=== PATIENT | female | born 1990 | race Caucasian/White ===

== ENCOUNTER 2016-05-01 16:20 | Emergency (ER) | payer OTHER ==
[~2016-05-01] VITALS: Ht 167.6 cm; Wt 90.7 kg
[2016-05-01] MEDS ORDERED: LABE10TAB (16:29)
--- NOTE | 2016-05-01 20:10 | REPUSA ---
HISTORY: Trauma. COMPARISON: No relevant comparison is available at the time of interpretation. CT ORBITS without contrast: Nasal Bone: Intact. Sinuses and mastoids: Clear. Orbits: No retrobulbar trauma. Maxilla: Intact. IMPRESSION: No orbital fracture.
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
[2016-05-01] MEDS ORDERED: IBUP200T45 PO (20:29)
[2016-05-01] MEDS ORDERED: TYLE325C PO (20:29)
[2016-05-01] MEDS: IBUPROFEN 800 MG TAB PO ONE (20:29)
[2016-05-01] MEDS: ACETAMINOPHEN 325 MG TAB PO ONE (20:29)
[2016-05-01 20:41] VITALS: BP 160/118
== END 2016-05-01 20:45 | disposition home or self-care (01) ==
LOC: M ED 17:46
DX: S00.83XA Contusion of other part of head, initial encounter (principal); W21.05XA Struck by basketball, initial encounter; Y92.89 Other specified places as the place of occurrence of the external cause; Y93.67 Activity, basketball; Y99.9 Unspecified external cause status

== ENCOUNTER 2016-07-16 12:51 | Emergency (ER) | payer OTHER ==
[~2016-07-16] VITALS: Ht 167.6 cm; Wt 86.2 kg
[~2016-07-16 12:51] MED LIST: IBUP200T45 PO; LABE10TAB; TYLE325C PO
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
[2016-07-16 14:38] LABS: BASO % 0.5 % (0.0-1.0); EOS # 0.5 K/mm3 (0.0-0.50); EOS % 5.9 % (0.0-3.0); LARGE UNSTAINED CELL # 0.1 K/mm3 (0.0-0.4); LARGE UNSTAINED CELL % 1.4 % (0.0-4.0); LYMPH % 24.8 % (24.0-44.0); MEAN CORPUSCULAR HEMOGLOBIN 32.3 pg (27.0-33.0); MEAN CORPUSCULAR HGB CONC 34.1 g/dl (32.0-36.5); MEAN CORPUSCULAR VOLUME 94.7 fl (80.0-96.0); MONO # 0.4 K/mm3 (0.0-0.8); MONO % 4.6 % (0.0-5.0); NEUTROPHILS % 62.8 % (36.0-66.0); PLATELET COUNT, AUTOMATED 201 k/mm3 (150-450); RED CELL DISTRIBUTION WIDTH 12.4 % (11.5-14.5)
[2016-07-16 14:43] LABS: CONTROL LINE HCG INT CTR LINE PRESENT
[2016-07-16 14:50] LABS: ALBUMIN 4.2 GM/DL (3.2-5.2); ALBUMIN/GLOBULIN RATIO 1.45 (1.00-1.93); ALKALINE PHOSPHATASE 74 U/L (45-117); ALT/SGPT 24 U/L (12-78); ANION GAP 7 MEQ/L (8-16); AST/SGOT 9 U/L (15-37); BILIRUBIN,TOTAL 1.1 MG/DL (0.2-1.0); BLOOD UREA NITROGEN 11 MG/DL (7-18); CALCIUM LEVEL 9.1 MG/DL (8.5-10.1); CARBON DIOXIDE LEVEL 29 MEQ/L (21-32); CHLORIDE LEVEL 105 MEQ/L (98-107); CREATININE FOR GFR 1.06 MG/DL (0.55-1.02); GLOMERULAR FILTRATION RATE > 60.0 (>60); GLUCOSE, FASTING 87 MG/DL (70-105); POTASSIUM SERUM 3.8 MEQ/L (3.5-5.1); SODIUM LEVEL 141 MEQ/L (136-145); TOTAL PROTEIN 7.1 GM/DL (6.4-8.2)
--- NOTE | 2016-07-16 14:58 | REP ---
RIGHT HAND, FOUR VIEWS: HISTORY: Injury. There is no acute fracture or dislocation. The joint spaces are normal in appearance. IMPRESSION: There is no acute fracture or dislocation. Signed by Lucas Larose MD 07/16/2016 03:00 P
[2016-07-16 15:05] LABS: CONTROL LINE INT CTR LINE PRESENT
[2016-07-16] MEDS ORDERED: ADACEL/BOOSTRIX VACCINE (DIPHTH/PERTUSS/ACELL/TETANUS)0.5ML SYR (90715) IM ONE (15:30)
[2016-07-16] MEDS ORDERED: AUGM875T27 PO (15:48)
[2016-07-16 16:14] VITALS: BP 131/95
[2016-07-17 09:39] LABS: HEPATITIS B SURFACE ANTIBODY NEGATIVE (POSITIVE)
== END 2016-07-16 16:27 | disposition home or self-care (01) ==
LOC: M ED 14:02
DX: S61.451A Open bite of right hand, initial encounter (principal); Y04.1XXA Assault by human bite, initial encounter; Y92.239 Unspecified place in hospital as the place of occurrence of the external cause; Y93.89 Activity, other specified; Y99.0 Civilian activity done for income or pay; I10 Essential (primary) hypertension; F41.9 Anxiety disorder, unspecified; Z79.899 Other long term (current) drug therapy

== ENCOUNTER → 2017-01-22 | Outpatient (REF) | payer OTHER ==
[~2017-01-22] MED LIST changes: +AUGM875T28 PO
== END ==
LOC: M LAB REF 09:18
PROVIDERS: ATTEND Physician Assistant
DX: J04.2 Acute laryngotracheitis (principal)

== ENCOUNTER → 2018-09-05 | Outpatient (CLI) | payer OTHER ==
[2018-09-05 17:44] LABS: BASO % 0.4 % (0.0-1.0); EOS # 0.1 10^3/uL (0.0-0.50); EOS % 0.8 % (0.0-3.0); HEMATOCRIT 41.2 % (36.0-47.0); HEMOGLOBIN 13.8 g/dl (12.0-15.5); LYMPH # 2.4 10^3/uL (1.5-4.5); LYMPH % 31.5 % (24.0-44.0); MEAN CORPUSCULAR HGB CONC 33.5 g/dl (32.0-36.5); MEAN CORPUSCULAR VOLUME 95.6 fl (80.0-96.0); MONO # 0.5 10^3/uL (0.0-0.8); MONO % 6.7 % (0.0-5.0); NEUTROPHILS # 4.7 10^3/uL (1.8-7.7); NEUTROPHILS % 60.3 % (36.0-66.0); PLATELET COUNT, AUTOMATED 170 10^3/uL (150-450); RED BLOOD COUNT 4.31 10^6/uL (4.00-5.40); WHITE BLOOD COUNT 7.8 10^3/uL (4.0-10.0)
[2018-09-05 18:09] LABS: ALBUMIN 4.4 GM/DL (3.2-5.2); ALT/SGPT 20 U/L (12-78); BILIRUBIN,TOTAL 1.4 MG/DL (0.2-1.0); BLOOD UREA NITROGEN 14 MG/DL (7-18); CALCIUM LEVEL 9.1 MG/DL (8.5-10.1); CARBON DIOXIDE LEVEL 29 MEQ/L (21-32); CHLORIDE LEVEL 105 MEQ/L (98-107); CREATININE FOR GFR 1.01 MG/DL (0.55-1.30); FREE T4 0.93 NG/DL (0.76-1.46); GLOMERULAR FILTRATION RATE > 60.0 (>60); GLUCOSE, FASTING 76 MG/DL (70-100); POTASSIUM SERUM 4.3 MEQ/L (3.5-5.1); SODIUM LEVEL 139 MEQ/L (136-145); TOTAL PROTEIN 7.1 GM/DL (6.4-8.2)
[2018-09-05 18:10] LABS: TOTAL 25(OH) VITAMIN D 32.6 NG/ML (30.0-100.0)
[2018-09-08 00:06] LABS: Lyme Disease IgG/IgM Antibodie <0.91 ISR (0.00-0.90); Lyme Disease IgM Ab Quantitati <0.80 index (0.00-0.79)
== END ==
LOC: M SMT 15:36
PROVIDERS: ATTEND Physician Assistant
DX: R53.83 Other fatigue (principal)

== ENCOUNTER → 2019-09-01 | Outpatient (CLI) | payer OTHER | LOC: M LABSMTC 13:24 | PROVIDERS: ATTEND Ophthalmology | DX: Z03.818 Encounter for observation for suspected exposure to other biological agents ruled out (principal); Z11.59 Encounter for screening for other viral diseases ==

== ENCOUNTER → 2019-12-07 | Outpatient (CLI) | payer OTHER | LOC: M LABSMTC 14:43 | PROVIDERS: ATTEND Ophthalmology | DX: Z11.59 Encounter for screening for other viral diseases (principal) ==

== ENCOUNTER → 2020-03-14 | Outpatient (CLI) | payer OTHER ==
[~2020-03-14] MED LIST changes: +LABE100T4; -LABE10TAB
[2020-03-14 18:03] LABS: BASO # 0.1 10^3/uL (0.0-0.2); BASO % 0.9 % (0.0-1.0); EOS # 0.1 10^3/uL (0.0-0.5); EOS % 1.8 % (0.0-3.0); HEMATOCRIT 40.6 % (36.0-47.0); HEMOGLOBIN 13.5 g/dl (12.0-15.5); LYMPH # 2.3 10^3/uL (1.5-5.0); LYMPH % 39.9 % (24.0-44.0); MEAN CORPUSCULAR HEMOGLOBIN 32.6 pg (27.0-33.0); MEAN CORPUSCULAR HGB CONC 33.3 g/dl (32.0-36.5); MEAN CORPUSCULAR VOLUME 98.1 fl (80.0-96.0); MONO # 0.3 10^3/uL (0.0-0.8); MONO % 5.5 % (0.0-5.0); NEUTROPHILS # 2.9 10^3/uL (1.5-8.5); NEUTROPHILS % 51.7 % (36.0-66.0); PLATELET COUNT, AUTOMATED 201 10^3/uL (150-450); RED BLOOD COUNT 4.14 10^6/uL (4.00-5.40); WHITE BLOOD COUNT 5.7 10^3/uL (4.0-10.0)
[2020-03-14 18:40] LABS: ALBUMIN 4.3 GM/DL (3.2-5.2); ALT/SGPT 35 U/L (12-78); BLOOD UREA NITROGEN 19 MG/DL (7-18); CALCIUM LEVEL 9.6 MG/DL (8.5-10.1); CARBON DIOXIDE LEVEL 29 MEQ/L (21-32); CHLORIDE LEVEL 104 MEQ/L (98-107); CREATININE FOR GFR 0.99 MG/DL (0.55-1.30); FREE T4 0.81 NG/DL (0.76-1.46); GLOMERULAR FILTRATION RATE > 60.0 (>60); GLUCOSE, FASTING 86 MG/DL (70-100); POTASSIUM SERUM 4.9 MEQ/L (3.5-5.1); SODIUM LEVEL 140 MEQ/L (136-145)
[2020-03-14 19:04] LABS: TOTAL 25(OH) VITAMIN D 23.1 NG/ML (30.0-100.0)
== END ==
LOC: M PLALAB 15:51
PROVIDERS: ATTEND Physician Assistant
DX: R53.1 Weakness (principal); R53.83 Other fatigue

== ENCOUNTER 2020-06-08 18:01 | Emergency (ER) | payer OTHER ==
[~2020-06-08] VITALS: Ht 167.6 cm; Wt 73.8 kg
[2020-06-08] MEDS ORDERED: SAXE1INJ INJ (18:10)
[2020-06-08] MEDS ORDERED: CLON0.5T2 PO (18:10)
[2020-06-08] MEDS ORDERED: NORCO, ANEXSIA 5/325MG TABLET (HYDROcodone/ACETAMINOPHEN) PO ONE (18:50)
--- NOTE | 2020-06-08 19:28 | REP ---
INDICATION: cut great toe on mower blade COMPARISON: None. TECHNIQUE: AP and lateral views of the left foot FINDINGS: The osseous structures and joint spaces are intact and normal. There is no evidence for acute fracture or dislocation. Surrounding soft tissues are grossly unremarkable and without obvious laceration, subcutaneous emphysema, or foreign body. IMPRESSION: No acute fracture or dislocation. <Electronically signed by Tim Dixon > 06/08/201923
--- NOTE | 2020-06-08 19:29 | REP ---
INDICATION: cut great toe on mower blade COMPARISON: None. TECHNIQUE: AP, lateral, bilateral oblique views left 1st toe. FINDINGS: No acute fracture or dislocation. No subcutaneous emphysema or foreign body. IMPRESSION: No foreign body. No acute fracture or dislocation. <Electronically signed by Tim Dixon > 06/08/201925
[2020-06-08] MEDS ORDERED: BOOSTRIX/ADACEL VACCINE (DIPHTH/PERTUSS/ACELL/TETANUS) 0.5ML SYR IM ONE (20:20)
[2020-06-08] MEDS ORDERED: CEPHALEXIN 500 MG CAP PO ONE (20:20)
[2020-06-08] MEDS ORDERED: CEPH500C PO (20:20)
[2020-06-08 20:21] VITALS: BP 140/91
== END 2020-06-08 20:42 | disposition home or self-care (01) ==
LOC: M ED 18:01
DX: S91.202A Unspecified open wound of left great toe with damage to nail, initial encounter (principal); W26.8XXA Contact with other sharp object(s), not elsewhere classified, initial encounter; Y92.018 Other place in single-family (private) house as the place of occurrence of the external cause

== ENCOUNTER → 2021-01-21 | Outpatient (REF) | payer OTHER ==
[~2021-01-21] MED LIST changes: +CEPH500C PO; +CLON0.5T2 PO; +SAXE1INJ INJ
== END ==
LOC: M LAB REF 17:04
PROVIDERS: ATTEND Family Medicine
DX: J06.9 Acute upper respiratory infection, unspecified (principal)

== ENCOUNTER 2021-04-24 10:15 | Emergency (ER) | payer OTHER ==
[~2021-04-24] VITALS: Ht 167.6 cm; Wt 70.5 kg
[2021-04-24] MEDS ORDERED: ZOLP10TA2 (10:27)
[2021-04-24] MEDS ORDERED: DULO1CAP5 (10:27)
[2021-04-24] MEDS ORDERED: SEMA2.4P (10:27)
[2021-04-24] MEDS ORDERED: ONDA4TAB6 PO (12:04)
[2021-04-24 12:17] VITALS: BP 141/87
== END 2021-04-24 12:18 | disposition home or self-care (01) ==
LOC: M ED 10:15
DX: S06.0X0A Concussion without loss of consciousness, initial encounter (principal); Y29.XXXA Contact with blunt object, undetermined intent, initial encounter; Y92.218 Other school as the place of occurrence of the external cause; Y99.0 Civilian activity done for income or pay; I10 Essential (primary) hypertension; F41.9 Anxiety disorder, unspecified; Z79.899 Other long term (current) drug therapy

== ENCOUNTER → 2021-11-13 | Outpatient (CLI) | payer OTHER ==
[~2021-11-13] MED LIST changes: +DULO1CAP5; -LABE100T4; +LABE100T6; +ONDA4TAB6 PO; +SEMA2.4P; +ZOLP10TA2
[2021-11-13 14:09] LABS: ALBUMIN 4.1 GM/DL (3.2-5.2); CALCIUM LEVEL 9.1 MG/DL (8.5-10.1); CREATININE FOR GFR 1.12 MG/DL (0.55-1.30); GLOMERULAR FILTRATION RATE 59.6 (>60); POTASSIUM SERUM 4.5 MEQ/L (3.5-5.1)
[2021-11-13 14:29] LABS: HEMOGLOBIN A1c 4.7 %
== END ==
LOC: M LAB 09:24
PROVIDERS: ATTEND Family Medicine
DX: E16.0 Drug-induced hypoglycemia without coma (principal)

== ENCOUNTER → 2022-03-09 | Outpatient (CLI) | payer OTHER ==
[2022-03-09 08:20] LABS: BASO % 0.8 % (0.0-1.0); EOS # 0.1 10^3/uL (0.0-0.5); EOS % 1.3 % (0.0-3.0); HEMATOCRIT 43.4 % (36.0-47.0); HEMOGLOBIN 13.9 g/dl (12.0-15.5); LYMPH # 1.6 10^3/uL (1.5-5.0); LYMPH % 29.1 % (24.0-44.0); MEAN CORPUSCULAR HEMOGLOBIN 31.5 pg (27.0-33.0); MEAN CORPUSCULAR VOLUME 98.4 fl (80.0-96.0); MONO # 0.4 10^3/uL (0.0-0.8); MONO % 6.8 % (2.0-8.0); NEUTROPHILS # 3.3 10^3/uL (1.5-8.5); NEUTROPHILS % 61.8 % (36.0-66.0); PLATELET COUNT, AUTOMATED 194 10^3/uL (150-450); RED BLOOD COUNT 4.41 10^6/uL (4.00-5.40); WHITE BLOOD COUNT 5.3 10^3/uL (4.0-10.0)
[2022-03-09 08:39] LABS: ALKALINE PHOSPHATASE 67 U/L (46-116); ALT/SGPT 22 U/L (7.0-40); AST/SGOT 17 U/L (<34); BLOOD UREA NITROGEN 18 MG/DL (9-23); CALCIUM LEVEL 9.5 MG/DL (8.5-10.1); CARBON DIOXIDE LEVEL 28 MMOL/L (20-31); CHLORIDE LEVEL 105 MMOL/L (98-107); CHOLESTEROL LEVEL 214 MG/DL (<200); CHOLESTEROL RISK RATIO 3.53 (<5); GLOMERULAR FILTRATION RATE > 60.0 (>60); GLUCOSE, FASTING 89 MG/DL (60-100); HDL CHOLESTEROL 60.6 MG/DL (>40); LDL CHOLESTEROL 137.8 MG/DL (<100); NON-HDL-C 153 MG/DL; POTASSIUM SERUM 4.5 MMOL/L (3.5-5.1); SODIUM LEVEL 140 MMOL/L (136-145); TOTAL PROTEIN 6.6 G/DL (5.7-8.2); TRIGLYCERIDES LEVEL 78 MG/DL (<150)
[2022-03-09 08:40] LABS: FREE T4 1.03 NG/DL (0.89-1.76); THYROID STIMULATING HORMONE 1.812 uIU/ML (0.55-4.78)
== END ==
LOC: M RAD 06:43
PROVIDERS: ATTEND Family Medicine
DX: I10 Essential (primary) hypertension (principal)

== ENCOUNTER → 2022-04-15 | Outpatient (REF) | payer OTHER | LOC: M LAB REF 09:38 | PROVIDERS: ATTEND Family Medicine | DX: E78.00 Pure hypercholesterolemia, unspecified (principal) ==

== ENCOUNTER → 2022-11-26 | Outpatient (CLI) | payer OTHER | LOC: M SLEEP HO 10:02 | PROVIDERS: ATTEND Internal Medicine Cardiovascular Disease | DX: G47.33 Obstructive sleep apnea (adult) (pediatric) (principal); R06.83 Snoring ==

== ENCOUNTER 2023-06-16 09:30 | Day surgery (SDC) | payer OTHER ==
[~2023-06-16] VITALS: Ht 167.6 cm; Wt 67.6 kg
[~2023-06-16 09:30] MED LIST changes: +BUSP1TAB PO; +DULO1CAP6 PO; +LABE100T6 PO; +NS 1,000 ML IV ONE; -SEMA2.4P; +SEMA2.4P SC
[2023-06-16] MEDS ORDERED: propofoL 200 MG/20 ML VIAL As Ordered ONE (12:20)
[2023-06-16] MEDS ORDERED: LIDOCAINE 2% 100MG/5ML SDV (FOR ANES.) As Ordered ONE (12:20)
[2023-06-16 12:23] VITALS: TEMP 97.1
[2023-06-16 12:39] VITALS: BP 142/77; O2SAT 100
== END 2023-06-16 12:40 | disposition home or self-care (01) ==
LOC: M OPP 09:30
PROVIDERS: ATTEND Surgery
DX: Z12.11 Encounter for screening for malignant neoplasm of colon (principal); K63.5 Polyp of colon; Z80.0 Family history of malignant neoplasm of digestive organs; Z79.899 Other long term (current) drug therapy

== ENCOUNTER 2024-11-12 09:30 | Emergency (ER) | payer OTHER ==
[~2024-11-12] VITALS: Ht 167.6 cm; Wt 73.1 kg
[~2024-11-12 09:30] MED LIST changes: -NS 1,000 ML IV ONE; +ONDA-282 PO; -ONDA4TAB6 PO; +ZOLP10TA11; -ZOLP10TA2
[2024-11-12] MEDS: MECLIZINE 25 MG TABLET PO ONE (11:27)
[2024-11-12] MEDS: NS (Normal Saline) 0.9% 1,000 ML IV ONE (11:27)
[2024-11-12] MEDS: ONDANSETRON 4MG 2ML VIAL IV ONE (11:27)
[2024-11-12 11:42] LABS: BASO # 0.0 10^3/uL (0.0-0.2); BASO % 0.2 % (0.0-1.0); EOS # 0.0 10^3/uL (0.0-0.5); EOS % 0.1 % (0.0-3.0); LYMPH # 1.0 10^3/uL (1.5-5.0); LYMPH % 7.7 % (24.0-44.0); MONO # 0.3 10^3/uL (0.0-0.8); MONO % 2.6 % (2.0-8.0); NEUTROPHILS # 11.6 10^3/uL (1.5-8.5); NEUTROPHILS % 89.2 % (36.0-66.0); PLATELET COUNT, AUTOMATED 197 10^3/uL (150-450)
[2024-11-12 12:06] LABS: ALT/SGPT 16 U/L (7.0-40); AST/SGOT 18 U/L (<34); CALCIUM LEVEL 8.7 MG/DL (8.5-10.1); CARBON DIOXIDE LEVEL 23 MMOL/L (20-31); CHLORIDE LEVEL 102 MMOL/L (98-107); CREATININE FOR GFR 0.71 MG/DL (0.55-1.30); GLOMERULAR FILTRATION RATE > 90.0 (>60); POTASSIUM SERUM 3.8 MMOL/L (3.5-5.1); SODIUM LEVEL 136 MMOL/L (136-145)
[2024-11-12 12:53] LABS: KETONE, URINE AUTO RFX 1+ mg/dL (NEGATIVE); LEUKOCYTE ESTERASE UR AUTO RFX NEGATIVE (NEGATIVE); NITRITE, URINE AUTO RFX NEGATIVE (NEGATIVE); RBC, URINE AUTO RFX 0 /HPF (0-3); SQUAM EPITHELIAL CELL UR AURFX 1 /HPF (0-6); WBC, URINE AUTO RFX 0 /HPF (0-3)
[2024-11-12 13:13] VITALS: BP 128/83
[2024-11-12] MEDS: LABETALOL 100 MG TAB PO ONE (13:13)
[2024-11-12] MEDS ORDERED: MECL-86 PO (13:31)
[2024-11-12] MEDS ORDERED: ONDA-282 PO (13:31)
[2024-11-12 13:38] VITALS: BP 123/85; TEMP 98.2; O2SAT 99
[2024-11-13] MEDS ORDERED: TRAN1DIS4 TOP (15:40)
[2024-11-13] MEDS ORDERED: REGL10TA6 PO (15:40)
[2024-11-13] MEDS ORDERED: CETI10CH PO (15:41)
== END 2024-11-12 13:44 | disposition home or self-care (01) ==
LOC: M ED 09:30
DX: O26.892 Other specified pregnancy related conditions, second trimester (principal); R42 Dizziness and giddiness; Z3A.17 17 weeks gestation of pregnancy; Z79.899 Other long term (current) drug therapy
CPT/HCPCS: 80048; 80076; 81001; 85025; 93005; 96361; 96374; 99284; J2405

== ENCOUNTER 2024-11-13 07:54 | Emergency (ER) | payer OTHER ==
[~2024-11-13] VITALS: Ht 167.6 cm; Wt 73.0 kg
[~2024-11-13 07:54] MED LIST changes: +MECL-86 PO
[2024-11-13] MEDS: NS (Normal Saline) 0.9% 1,000 ML IV ONE (12:44)
[2024-11-13 12:47] LABS: BASO # 0.0 10^3/uL (0.0-0.2); BASO % 0.2 % (0.0-1.0); EOS # 0.0 10^3/uL (0.0-0.5); EOS % 0.1 % (0.0-3.0); LYMPH # 0.3 10^3/uL (1.5-5.0); LYMPH % 3.2 % (24.0-44.0); MONO # 0.6 10^3/uL (0.0-0.8); MONO % 6.4 % (2.0-8.0); NEUTROPHILS # 8.9 10^3/uL (1.5-8.5); NEUTROPHILS % 89.6 % (36.0-66.0); PLATELET COUNT, AUTOMATED 171 10^3/uL (150-450)
[2024-11-13 12:57] LABS: ERYTHROCYTE SEDIMENTATION RATE 17 mm/hr (0-20)
[2024-11-13 13:22] LABS: C REACTIVE PROTEIN QUANTITATIV 0.90 MG/DL (<1.0)
[2024-11-13 13:23] LABS: CPK CREATINE PHOSPHOKINASE 33 U/L (34-145)
[2024-11-13 13:31] LABS: ALT/SGPT 21 U/L (7.0-40); AST/SGOT 22 U/L (<34); CALCIUM LEVEL 8.6 MG/DL (8.5-10.1); CARBON DIOXIDE LEVEL 25 MMOL/L (20-31); CHLORIDE LEVEL 106 MMOL/L (98-107); CK-MB VALUE MASS < 1.0 NG/ML (<3.6); CREATININE FOR GFR 0.71 MG/DL (0.55-1.30); FREE T4 1.14 NG/DL (0.89-1.76); GLOMERULAR FILTRATION RATE > 90.0 (>60); POTASSIUM SERUM 4.1 MMOL/L (3.5-5.1); SODIUM LEVEL 139 MMOL/L (136-145)
[2024-11-13 15:00] VITALS: BP 140/76
[2024-11-13] MEDS: LABETALOL 100 MG TAB PO ONE (15:00)
[2024-11-13] MEDS ORDERED: REGL10TA6 PO (15:40)
[2024-11-13] MEDS ORDERED: TRAN1DIS4 TOP (15:40)
[2024-11-13] MEDS ORDERED: CETI10CH PO (15:41)
[2024-11-13 15:55] VITALS: BP 127/83; TEMP 99.9; O2SAT 100
== END 2024-11-13 15:56 | disposition home or self-care (01) ==
LOC: M ED 07:54
DX: O99.891 Other specified diseases and conditions complicating pregnancy (principal); Z3A.17 17 weeks gestation of pregnancy; Z79.899 Other long term (current) drug therapy
CPT/HCPCS: 80048; 80076; 82550; 82553; 83690; 84439; 84443; 84484; 85025; 85652; 86140; 87486; 87581; 87633; 87798; 93041; 96361; 96374; 99285; J2765

== ENCOUNTER 2024-11-20 07:36 | Emergency (ER) | payer OTHER ==
[~2024-11-20] VITALS: Ht 167.6 cm; Wt 74.0 kg
[~2024-11-20 07:36] MED LIST changes: +CETI10CH PO; +REGL10TA6 PO; +TRAN1DIS4 TOP
[2024-11-20] MEDS ORDERED: SCOPOLAMINE (07:44)
[2024-11-20] MEDS ORDERED: CETI-24 (07:44)
[2024-11-20] MEDS ORDERED: METO10TA3 (07:44)
[2024-11-20] MEDS ORDERED: LEVO25TA5 (07:44)
[2024-11-20] MEDS ORDERED: cmp (07:44)
[2024-11-20] MEDS ORDERED: ESCITALOPRAM (07:44)
[2024-11-20 08:25] LABS: BASO # 0.0 10^3/uL (0.0-0.2); BASO % 0.3 % (0.0-1.0); EOS # 0.1 10^3/uL (0.0-0.5); EOS % 0.8 % (0.0-3.0); LYMPH # 1.3 10^3/uL (1.5-5.0); LYMPH % 11.2 % (24.0-44.0); MONO # 0.4 10^3/uL (0.0-0.8); MONO % 3.4 % (2.0-8.0); NEUTROPHILS # 9.7 10^3/uL (1.5-8.5); NEUTROPHILS % 83.9 % (36.0-66.0); PLATELET COUNT, AUTOMATED 193 10^3/uL (150-450)
[2024-11-20 08:55] LABS: CALCIUM LEVEL 8.7 MG/DL (8.5-10.1); CARBON DIOXIDE LEVEL 24 MMOL/L (20-31); CHLORIDE LEVEL 104 MMOL/L (98-107); CREATININE FOR GFR 0.72 MG/DL (0.55-1.30); GLOMERULAR FILTRATION RATE > 90.0 (>60); MAGNESIUM LEVEL 1.7 MG/DL (1.8-2.4); POTASSIUM SERUM 3.9 MMOL/L (3.5-5.1); SODIUM LEVEL 138 MMOL/L (136-145)
[2024-11-20 08:57] LABS: FREE T4 1.11 NG/DL (0.89-1.76)
[2024-11-20 10:39] LABS: APPEARANCE, URINE HAZY (CLEAR); BACTERIA, URINE AUTO 1+ (NEGATIVE); BILIRUBIN, URINE AUTO NEGATIVE (NEGATIVE); BLOOD, URINE BLOOD NEGATIVE (NEGATIVE); GLUCOSE, URINE (UA) AUTO NEGATIVE (NEGATIVE); KETONE, URINE AUTO NEGATIVE (NEGATIVE); LEUKOCYTE ESTERASE, URINE AUTO NEGATIVE (NEGATIVE); MUCUS, URINE SMALL (NEGATIVE); NITRITE, URINE AUTO NEGATIVE (NEGATIVE); PROTEIN, URINE AUTO NEGATIVE (NEGATIVE); RBC, URINE AUTO 1 /HPF (0-3); SPECIFIC GRAVITY URINE AUTO 1.019 (1.002-1.035); SQUAMOUS EPITHELIAL CELL UR AU 1 /HPF (0-6); UROBILINOGEN, URINE AUTO 0.2 mg/dL (0.0-2.0); WBC, URINE AUTO 0 /HPF (0-3)
[2024-11-20] MEDS: MECLIZINE 25 MG TABLET PO ONE (12:49)
[2024-11-20] MEDS ORDERED: ONDA-282 PO (15:26)
[2024-11-20] MEDS ORDERED: MECL-209 PO (15:26)
[2024-11-20] MEDS ORDERED: Vestibular PT XX (15:27)
[2024-11-20 15:43] VITALS: BP 150/90; TEMP 98.6; O2SAT 99
== END 2024-11-20 15:45 | disposition home or self-care (01) ==
LOC: M ED 07:36
DX: O26.892 Other specified pregnancy related conditions, second trimester (principal); O10.012 Pre-existing essential hypertension complicating pregnancy, second trimester; H81.10 Benign paroxysmal vertigo, unspecified ear; Z79.899 Other long term (current) drug therapy; O09.512 Supervision of elderly primigravida, second trimester; Z3A.18 18 weeks gestation of pregnancy; Z86.16 Personal history of COVID-19

== ENCOUNTER → 2024-11-29 | Outpatient (CLI) | payer OTHER ==
[~2024-11-29] MED LIST changes: +CETI-24; +ESCITALOPRAM; +LEVO25TA5; +MECL-209 PO; +METO10TA3; +SCOPOLAMINE; +Vestibular PT XX; +cmp
== END ==
LOC: M WHC 07:26
PROVIDERS: ATTEND Obstetrics & Gynecology
DX: Z34.82 Encounter for supervision of other normal pregnancy, second trimester (principal)

== ENCOUNTER → 2025-01-16 | Outpatient (CLI) | payer OTHER ==
[~2025-01-16] MED LIST changes: -LABE100T6; -LABE100T6 PO; +LABE100T91; +LABE100T91 PO
[2025-01-16 10:42] LABS: PLATELET COUNT, AUTOMATED 194 10^3/uL (150-450)
[2025-01-16 10:44] LABS: GLUCOSE CHALLENGE TEST 1 HOUR 73 MG/DL (LESS THAN 140)
[2025-01-16 11:13] LABS: HIV 1&2 SCREEN NEGATIVE (NEGATIVE)
[2025-01-16 11:21] LABS: HEPATITIS C VIRUS ABY INDEX < 0.02 INDEX (<0.8)
[2025-01-16 11:43] LABS: Trichomonas vaginalis (AMP) NOT DETECTED (NEGATIVE)
[2025-01-16 12:07] LABS: GC DNA AMPLIFICATION NEGATIVE (NEGATIVE)
== END ==
LOC: M PLALAB 07:06
PROVIDERS: ATTEND Obstetrics & Gynecology
DX: Z34.92 Encounter for supervision of normal pregnancy, unspecified, second trimester (principal)